=== PATIENT | female | born 1980 | race Two or more races ===

== ENCOUNTER 2016-10-17 09:28 | Inpatient (IN) | payer SELFPAY ==
[~2016-10-17] VITALS: Ht 149.9 cm; Wt 60.3 kg
[2016-10-17] MEDS ORDERED: IV RINGERS,LACTATED 1000ML 1,000 ML IV SCH (10:35)
[2016-10-17] MEDS ORDERED: OXYTOCIN 30 UNIT/500 ML PREMIX 500 ML IV PRN ×2 (10:45→16:30)
[2016-10-17] MEDS ORDERED: fentaNYL PF VIAL 100 MCG/2 ML VIAL IV PRN ×2 (10:45)
[2016-10-17] MEDS ORDERED: 0.9 % SODIUM CHLORIDE 10 ML DISP.SYRIN. IV PRN ×2 (10:45→16:30)
[2016-10-17] MEDS ORDERED: TERBUTALINE 1 MG/ML VIAL. SQ PRN (10:45)
[2016-10-17] MEDS ORDERED: LIDOCAINE 1% PF 30 ML VIAL. INJ PRN (10:45)
[2016-10-17] MEDS ORDERED: BUTORPHANOL 2 MG/ML VIAL. IV PRN ×2 (10:45)
[2016-10-17] MEDS ORDERED: IBUPROFEN 600 MG TABLET. PO PRN (10:45)
[2016-10-17] MEDS ORDERED: PNV1TABL25 PO (11:33)
[2016-10-17 11:35] VITALS: BP 111/58
[2016-10-17 12:32] LABS: HEMATOCRIT 39.1 % (36.0-47.0); HEMOGLOBIN 12.9 g/dL (12.0-15.5); RED BLOOD COUNT 4.46 x10^6/uL (3.50-5.40); RED CELL DISTRIBUTION WIDTH 14.2 % (11.5-14.5); WHITE BLOOD COUNT 11.4 x10^3/uL (4.0-11.0)
--- NOTE | 2016-10-17 13:15 | RAD ---
Obstetrical ultrasound-Limited, 10/17/2016: History: Check presentation There is a single intrauterine fetus in a cephalic orientation. The heart rate is 124 bpm. This is a limited exam, not including a survey. The placenta lies posteriorly extending into the fundal region. A small amount of amniotic fluid is present with the LUIS MIGUEL calculated at. 9.4.
[2016-10-17] MEDS ORDERED: OXYTOCIN in NORMAL SALINE PREMIX 30 UNIT/500 ML BAG. IV ONE (14:00)
[2016-10-17] MEDS ORDERED: BENZOCAINE 20% TOPICAL AEROSOL SPRAY 57GM CAN. TP PRN (16:30)
[2016-10-17] MEDS ORDERED: HYDROCORTISONE 1% TOPICAL OINTMENT 30GM TUBE. TP PRN (16:30)
[2016-10-17] MEDS ORDERED: MMR per PROTOCOL. MC PRN (16:30)
[2016-10-17] MEDS ORDERED: diphenhydrAMINE HCL 25 MG CAPSULE PO PRN (16:30)
[2016-10-17] MEDS ORDERED: MAG HYDROX/ALUMINUM HYD/SIMETH 30 ML ORAL.SUSP PO PRN (16:30)
[2016-10-17] MEDS ORDERED: ACETAMINOPHEN 325 MG TABLET. PO PRN (16:30)
[2016-10-17] MEDS ORDERED: DOCUSATE SODIUM 100 MG CAPSULE. PO PRN (16:30)
[2016-10-17] MEDS ORDERED: PHENYLEPH/MINERAL OIL/PETROLAT RECTAL OINTMENT 28GM TUBE. RC PRN (16:30)
[2016-10-17] MEDS ORDERED: ZOLPIDEM 5 MG TABLET. PO PRN (16:30)
[2016-10-17] MEDS ORDERED: SIMETHICONE 80 MG TAB.CHEW PO PRN (16:30)
[2016-10-17] MEDS ORDERED: oxyCODONE/APAP 5/325 1 TAB TABLET PO PRN (16:30)
[2016-10-17] MEDS ORDERED: MAGNESIUM HYDROXIDE 2,400 MG/30 ML ORAL.SUSP. PO PRN (16:30)
[2016-10-17 17:05] VITALS: BP 100/49
--- NOTE | 2016-10-17 18:06 | HP ---
ADMIT DATE: 10/17/2016 CHIEF COMPLAINT/HISTORY OF PRESENT ILLNESS: The patient is a 36-year-old Amharic lady who is due on 10/28/2016. She is a [facility] patient who was seen in the office for her care and has had a breech presentation with the sonogram 4 weeks ago and comes in with a history of having contractions and also leaking amniotic fluid. The patient was admitted to the hospital because of spontaneous rupture of membranes. OBJECTIVE: VITAL SIGNS: Physical examination reveals the vital signs being stable. HEAD, EYES, NOSE, AND THROAT: Within normal limits. LUNGS: Clear. HEART: Sounds regular sinus rhythm. ABDOMEN: Soft. heart tones of 140 per minute, vertex presenting. Cervix about 1 cm to 2 cm dilated at the time of admission to the hospital and leaking clear amniotic fluid. IMPRESSION: 4, para 3, 38-1/5 weeks' , spontaneous rupture of membranes. PLAN: Vaginal delivery. NAEEM RILEY MD DR: DONNA/isabel JOB#: [id number] / [id number]
[2016-10-17 18:10] VITALS: BP_SYST 108
--- NOTE | 2016-10-17 18:40 | OP ---
DATE OF SURGERY: 10/17/2016 DELIVERY NOTE This patient is a 36-year-old [place] lady, who is a 4, para 3, EDC 10/28/2016, admitted to the hospital with a history of having contractions and also leaking amniotic fluid. She did have an immediate sonogram to confirm the position of the baby, which was vertex presentation. At the time of admission to the hospital, cervix was dilated to 1-2 cm and ruptured membranes with clear amniotic fluid, and she did make a good progress of labor, got to complete dilatation. She had a spontaneous vaginal delivery, alive female infant, weighing 6 pounds 5 ounces, was delivered at 1351 hours on 10/17/2016 with the scores of 8, 9, and 9 without any problems. There was cord around the neck, which was released at the time of the delivery. The cord was clamped and cut. Cord blood was taken. Placenta removed subcutaneous. No hemorrhage noted. No vaginal tears. No perineal tears. She did receive Pitocin after delivery of the placenta. Estimated blood loss about 150 mL. Mother tolerated the delivery well. Baby is referred to supervisor modern languages for further care and treatment. NAEEM RILEY MD DR: DONNA/isabel JOB#: [id number] / [id number]
[2016-10-17 21:50] VITALS: BP 117/58
[2016-10-17] MEDS: IBUPROFEN 600 MG TABLET. PO SCH (22:01)
[2016-10-18 01:05] VITALS: BP 97/45
[2016-10-18 06:05] VITALS: BP 90/50
[2016-10-18] MEDS: IBUPROFEN 600 MG TABLET. PO SCH ×2 (06:15→18:22)
[2016-10-18] MEDS ORDERED: FERROUS SULFATE 325 MG TABLET. PO SCH (08:00)
--- NOTE | 2016-10-18 08:57 | PDOC ---
SUBJECTIVE Subjective No complaints Doing well OBJECTIVE Objective Vital signs stable Uterus firm Lochia normal Vital Signs Vital Signs Date Time Temp Pulse Resp B/P (MAP) Pulse Ox O2 Delivery O2 Flow Rate FiO2 10/18/16 06:05 97.7 76 18 90/50 (63) 96 Room Air 97.7 10/18/16 01:05 97.9 65 18 97/45 (62) 96 Room Air 97.9 10/17/16 21:50 97.9 68 18 117/58 (77) 97 Room Air 97.9 10/17/16 18:10 98.2 71 20 108/ 96 Room Air 98.2 10/17/16 17:05 98.8 80 20 100/49 (66) Room Air 98.8 10/17/16 11:35 97.9 86 20 111/58 (75) 97.9 PHYSICAL EXAM Physical Exam No fever Doing ok ASSESSMENT/PLAN Assessment/Plan Plan dismissal in am Problems: COMMENT Lab Laboratory Tests Test 10/17/16 11:13 10/18/16 05:05 White Blood Count 11.4 x10^3/uL (4.0-11.0) Red Blood Count 4.46 x10^6/uL (3.50-5.40) Hemoglobin 12.9 g/dL (12.0-15.5) Hematocrit 39.1 % (36.0-47.0) 38.6 % (36.0-47.0) Mean Corpuscular Volume 88 fL (79-100) Mean Corpuscular Hemoglobin 29 pg (25-35) Mean Corpuscular Hemoglobin Concent 33 g/dL (31-37) Red Cell Distribution Width 14.2 % (11.5-14.5) Platelet Count 429 x10^3/uL (140-400) NAEEM RILEY MD October 18, 2016 08:57
[2016-10-18 09:21] LABS: RPR REFLEX Non Reactive (Non Reactive)
[2016-10-18 11:25] VITALS: BP 98/56
[2016-10-18 15:54] VITALS: BP 99/58
[2016-10-18 21:32] VITALS: BP 116/59
[2016-10-19] MEDS: IBUPROFEN 600 MG TABLET. PO SCH ×4 (04:18→15:56)
[2016-10-19 05:44] VITALS: BP 118/69
--- NOTE | 2016-10-19 11:42 | PDOC ---
SUBJECTIVE Subjective no problems OBJECTIVE Objective Vital signs stable Vital Signs Vital Signs Date Time Temp Pulse Resp B/P (MAP) Pulse Ox O2 Delivery O2 Flow Rate FiO2 10/19/16 05:44 98.4 60 18 118/69 (85) 97 Room Air 98.4 10/18/16 21:32 98.3 73 18 116/59 (78) 98 Room Air 98.3 10/18/16 21:00 Room Air 10/18/16 15:54 98.6 72 16 99/58 (72) 98 Room Air 98.6 PHYSICAL EXAM Physical Exam Abdomen soft Uterus firm Lochia normal ASSESSMENT/PLAN Assessment/Plan Patient can go home today Will see her in 6 weeks in office Problems: NAEEM RILEY MD October 19, 2016 11:42
[2016-10-19 13:30] VITALS: BP 110/62
== END 2016-10-19 18:38 | disposition home or self-care (01) | DRG 775 ==
LOC: 3 SO LND 09:28 → OBSVTOIN 09:28 → 3 NORTH 17:42
PROVIDERS: ADMIT Obstetrics & Gynecology; ATTEND Obstetrics & Gynecology
PROC: 10E0XZZ Delivery of Products of Conception, External Approach (ICD-10-PCS; principal; 2016-10-17)
DX: O69.81X0 Labor and delivery complicated by cord around neck, without compression, not applicable or unspecified (principal); Z37.0 Single live birth; Z3A.38 38 weeks gestation of pregnancy
CPT/HCPCS: 36415; 76815; 85014; 85027; 86593; 86850; 86900; 86901; G0378; J2590; J7120